=== PATIENT | female | born 1985 | race Caucasian/White ===

== ENCOUNTER 2019-03-07 20:33 | Inpatient (IN) | payer OTHER ==
[~2019-03-07] VITALS: Ht 172.7 cm; Wt 93.0 kg
--- NOTE | 2019-03-07 20:45 | NUR ---
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
[2019-03-07] MEDS ORDERED: IV NS 0.9% 1,000 ML BAG IV ONE ×2 (21:00→22:30)
--- NOTE | 2019-03-07 21:15 | NUR ---
IV STARTED, LABS DRAWN
[2019-03-07] MEDS ORDERED: MORPHINE SULFATE INJ 2 MG/ML DISP.SYRIN IV ONE (21:30)
[2019-03-07] MEDS ORDERED: ONDANSETRON HCL/PF - ER 4 MG/2 ML VIAL IV ONE (21:30)
[2019-03-07] MEDS ORDERED: ONDANSETRON HCL/PF 4 MG/2 ML VIAL ONE (21:32)
[2019-03-07 21:41] LABS: BASOPHILS % (AUTO) 0.1 % (0.0-2.0); EOSINOPHILS % (AUTO) 0.3 % (0.0-6.0); HEMATOCRIT 36 % (33-45); HEMOGLOBIN 11.9 g/dL (11.5-14.8); LYMPHOCYTES # (AUTO) 0.4 /CMM (0.8-4.8); LYMPHOCYTES % (AUTO) 3.2 % (20.0-44.0); MEAN CORPUSCULAR HGB CONC 33 g/dl (31.0-36.0); MEAN CORPUSCULAR VOLUME 89 fL (82-100); MONOCYTES # (AUTO) 0.5 /CMM (0.1-1.30); MONOCYTES % (AUTO) 3.8 % (2.0-12.0); NEUTROPHILS # (AUTO) 11.4 /CMM (1.8-8.9); NEUTROPHILS % (AUTO) 92.6 % (43.0-81.0); PLATELET COUNT (AUTO) 293 /CMM (150-450); RED BLOOD CELL COUNT(AUTO) 4.03 MIL/uL (4.0-5.2); WHITE BLOOD COUNT (AUTO) 12.3 K/uL (4.3-11.0)
[2019-03-07 21:43] LABS: APPEARANCE,URINE SL CLOUDY (CLEAR); BILIRUBIN,URINE 1+ (NEGATIVE); BLOOD, URINE TRACE-INTA Ery/uL (NEGATIVE); COLOR,URINE ORANGE (YELLOW); KETONES,URINE 1+ (NEGATIVE); LEUKOCYTE ESTERASE ,URINE TRACE (NEGATIVE); NITRITE, URINE POSITIVE (NEGATIVE); PH,URINE 6.5 (5.0-8.0); PROTEIN,URINE 3+ mg/dl (NEGATIVE); UGLUCOSE TRACE mg/dL (NEGATIVE)
[2019-03-07 21:52] LABS: CALCIUM, SERUM 8.9 mg/dL (8.5-10.1); CARBON DIOXIDE 23 mmol/L (21-32); CHLORIDE 101 mmol/L (98-107); CREATININE 1.1 mg/dL (0.6-1.3); GLUCOSE 133 mg/dL (74-106); POTASSIUM 4.4 mmol/L (3.5-5.1); SODIUM SERUM 136 mmol/L (136-145); UREA NITROGEN, BLOOD 13 mg/dL (7-18)
--- NOTE | 2019-03-07 21:55 | NUR ---
TECH AT BEDSIDE FOR KIDNEY ULTRASOUND
[2019-03-07 21:57] LABS: ALANINE AMINOTRANSFERASE 23 U/L (12-78); ALBUMIN 3.6 g/dL (3.4-5.0); ALKALINE PHOSPHATASE 53 U/L (46-116); ASPARTATE AMINOTRANSFERASE 27 U/L (15-37); BILIRUBIN,DIRECT 0.1 mg/dL (0.0-0.2); BILIRUBIN,TOTAL 0.5 mg/dL (0.2-1.0); TOTAL PROTEIN, SERUM 7.4 g/dL (6.4-8.2)
[2019-03-07] MEDS ORDERED: MORPHINE SULFATE INJ 2 MG/ML DISP.SYRIN ONE (22:01)
--- NOTE | 2019-03-07 22:15 | NUR ---
CALLED [facility] TO HAVE ORTHOPEDIC SPECIALIST DR ASH
[2019-03-07 22:31] LABS: BACTERIA,URINE Moderate /HPF (None Seen); SQUAMOUS EPITHELIAL CELL,UR Moderate /HPF (None Seen)
--- NOTE | 2019-03-07 22:49 | NUR ---
CALLED HOUSE [facility] FOR TELE BED
--- NOTE | 2019-03-07 22:51 | NUR ---
TELE BED 314-2
--- NOTE | 2019-03-07 22:57 | NUR ---
CALLED REPORT TO DOREEN SANCHEZ
--- NOTE | 2019-03-07 23:12 | NUR ---
TRANSFERING PT TO ROOM 314 PER ACLS PROTOCOL
--- NOTE | 2019-03-07 23:15 | NUR ---
ADMISSION NOTES: RECEIVED REPORT FROM DOREEN SANCHEZ CHARGE. PT WAS BROUGHT TO THE UNIT FROM ER, VIA GURNEY. PLACED IN BED, MADE COMFORTABLE. PT IS A/O X4, ON RA RESPIRATIONS EVEN AND UNLABORED. ORIENTED TO UNIT POLICY AND HOURLY ROUNDING, USE OF CALL LIGHT. SKIN ASSESSMENT PERFORMED , NO SKIN ISSUES NOTED. PT STILL C/O FEELING ACHY, SICK IN THE STOMACH, AND HEAD ACHE. PT HAS ONGOING BOLUS OF NS, ABOUT 300ML, INFUSING AT RIGHT HAND IV ACCESS G 20. MET WITH PT'S MOTHER AT BED SIDE. PLACED ON TELE MONITORING, SINUS RHYTHM HR 96. SAFETY PRECAUTIONS FOR FALL INITIATED, CALL LIGHT IN REACH, WILL CONTINUE MONITORING PT.
[2019-03-07 23:20] VITALS: BP 114/76
--- NOTE | 2019-03-08 00:05 | NUR ---
RN NOTES: NOTIFIED MD ESTIMATOR LUMBER OF PT'S ARRIVAL TO THE UNIT, NEEDS ADMITTING ORDERS, AND PT STILL C/O "FEELING ACHY, SICK IN THE STOMACH, BACK PAIN 810". AWAITING CALL BACK
[2019-03-08] MEDS ORDERED: ALPR0.5T PO (00:32)
[2019-03-08] MEDS ORDERED: PYRIDIUM PO (00:32)
[2019-03-08] MEDS ORDERED: SULF1TAB48 PO (00:32)
[2019-03-08 00:38] VITALS: BP 118/68
[2019-03-08] MEDS ORDERED: ONDANSETRON HCL/PF 4 MG/2 ML VIAL IVP PRN (01:00)
[2019-03-08] MEDS ORDERED: HYDROCODONE/APAP 5/325MG 1 EACH TABLET PO PRN (01:00)
[2019-03-08] MEDS ORDERED: MORPHINE SULFATE INJ 2 MG/ML DISP.SYRIN IV PRN (01:00)
[2019-03-08] MEDS: IV NS 0.9% 1,000 ML IV SCH ×3 (01:00→22:12)
[2019-03-08] MEDS ORDERED: Z GUARD REMEDY 2 OZ OINT TP PRN (01:00)
[2019-03-08] MEDS ORDERED: MAGNESIUM HYDROXIDE 30 ML UDC PO PRN (01:00)
[2019-03-08] MEDS ORDERED: CEFTRIAXONE 1 G VIAL ONE (01:00)
[2019-03-08] MEDS ORDERED: ALPRAZOLAM 0.5 MG TABLET PO PRN (01:00)
[2019-03-08] MEDS ORDERED: ZOLPIDEM TARTRATE 5 MG TABLET PO PRN (01:00)
[2019-03-08] MEDS ORDERED: MAG HYDROX/AL HYDROX/SIMETH 30 ML UDC PO PRN (01:00)
[2019-03-08] MEDS: CEFTRIAXONE 1 G in IV D5W 50 ML IV SCH (01:01)
--- NOTE | 2019-03-08 01:07 | NUR ---
prn zofran: pt c/o being nauseated, prn zofran 4 mg ivp administered to pt at this time. will continue to monitor and reassess pt
--- NOTE | 2019-03-08 01:20 | NUR ---
prn morphine: pt c/o 02/13 generalized pain, pain in torso, lower back, shoulder, bladder area, requesting for pain medication. prn morphine 0.5 mg ivp administered to pt at this time. will continue to monitor and reassess pt.
[2019-03-08 03:54] LABS: BASOPHILS % (AUTO) 0.1 % (0.0-2.0); EOSINOPHILS % (AUTO) 0.2 % (0.0-6.0); HEMATOCRIT 32 % (33-45); HEMOGLOBIN 10.7 g/dL (11.5-14.8); LYMPHOCYTES # (AUTO) 0.6 /CMM (0.8-4.8); LYMPHOCYTES % (AUTO) 8.1 % (20.0-44.0); MEAN CORPUSCULAR HGB CONC 33 g/dl (31.0-36.0); MEAN CORPUSCULAR VOLUME 89 fL (82-100); MONOCYTES # (AUTO) 0.3 /CMM (0.1-1.30); NEUTROPHILS # (AUTO) 6.2 /CMM (1.8-8.9); NEUTROPHILS % (AUTO) 87.6 % (43.0-81.0); PLATELET COUNT (AUTO) 247 /CMM (150-450); RED BLOOD CELL COUNT(AUTO) 3.62 MIL/uL (4.0-5.2)
[2019-03-08 04:00] VITALS: BP 108/64
[2019-03-08 04:03] LABS: CALCIUM, SERUM 8.2 mg/dL (8.5-10.1); CREATININE 0.9 mg/dL (0.6-1.3); MAGNESIUM 1.4 mg/dL (1.8-2.4); PHOSPHORUS 2.8 mg/dL (2.5-4.9); POTASSIUM 3.8 mmol/L (3.5-5.1)
[2019-03-08] MEDS: ACETAMINOPHEN 325 MG TABLET PO PRN ×3 (04:19→20:08)
--- NOTE | 2019-03-08 04:20 | NUR ---
prn tylenol: pt c/o head ache requesting for tylenol. prn tylenol 650 mg tab po administered to pt at this time. will continue to monitor and reassess
--- NOTE | 2019-03-08 04:40 | NUR ---
RN NOTES: CONTACTED EPIC MD PROGRAM SUPERVISOR REGARDING PT'S REQUEST FOR IV TORADOL FOR PAIN. AWAITING CALL BACK.
--- NOTE | 2019-03-08 05:15 | NUR ---
RN NOTES: RECEIVED CALL FROM MELTER LOADER MD. T/O RECEIVED FOR TORADOL 30 MG IV Q6HRS PRN FOR PAIN/INFLAMMATION. ALSO RELAYED TO MD LATEST LAB RESULT AND LACTIC ACID RESULT, INCLUDING VITAL SIGN TREND. RECEIVED T/O FOR MG REPLACEMENT. MAGNESIUM 3GM IVPB. READ BACK COMPLETED, VERIFIED AND CARRIED OUT.
[2019-03-08] MEDS ORDERED: Magnesium 1GM/D5W 100ML PREMIX PIGGYBACK IV ONE (05:30)
[2019-03-08] MEDS: Magnesium 1GM/D5W 100ML PREMIX 100 ML IV SCH ×3 (05:36→08:57)
[2019-03-08] MEDS: KETOROLAC TROMETHAMINE INJ 30 MG/ML VIAL IV PRN (05:36)
--- NOTE | 2019-03-08 05:37 | NUR ---
prn toradol: pt c/o generalized pain/torso pain, lower back pain, shoulder pain, bladder area pain, requesting for toradol. prn toradol 30mg ivp administered at this time. also offered and provided with ice pack as pt complaining of feeling hot, was given tylenol an hour ago for head ache, latest temp 99.5.
--- NOTE | 2019-03-08 06:39 | NUR ---
rn closing notes: pt remains afebrile, on ra, respirations even and unlabored. still of feeling dizzy and sore on her back, bladder and leg area. last pain meds administered at 0537. iv access remains patent and flushing well, with ongoing magnesium replacement at 100ml/hr. remains on sinus rhythm hr 95. vs remains stable, needs attended. safety precautions for fall remains engaged, margie light in reach, will endorse to day rn for continuity of care.
--- NOTE | 2019-03-08 07:45 | NUR ---
RN OPENING NOTES PT AWAKE AND RESTING IN BED. PT STATES THAT SHE "FEELS MUCH BETTER, BUT STILL FEELS A LITTLE CLOUDY". PT HAS RIGHT HAND #20 IV RUNNING 1MG MAG. PT TELE MONITORED NSR. SAFETY PRECAUTIONS IN PLACE, BED IN LOWEST LOCKED POSITION, X2 SIDE RAILS UP AND CALL LIGHT WITHIN REACH. WILL CONTINUE TO MONITOR.
[2019-03-08 08:00] VITALS: BP_SYST 101; BP_SYST 103; BP_SYST 123; BP_DIAS 60; BP_DIAS 69; BP_DIAS 70; BP_DIAS 74
--- NOTE | 2019-03-08 13:30 | NUR ---
RN NOTES PT COMPLAINING OF HEADACHE. PT GIVEN PRN 650MG TYLENOL. WILL CONTINUE TO MONITOR.
[2019-03-08 16:00] VITALS: BP 110/70
--- NOTE | 2019-03-08 19:36 | NUR ---
RN NOTES KS RAULITO DAMIEN ORDER SENNA 2 HS AND COLACE BID. WILL CARRY OUT ORDERED.
--- NOTE | 2019-03-08 19:43 | NUR ---
RN CLOSING NOTES PT AWAKE AND RESTING IN BED. FAMILY AT BEDSIDE. NO COMPLAINTS OF PAIN, SOB OR DISTRESS AT THIS TIME. PT HAS RIGHT HAND #20 INTACT AND RUNNING NS @125 ML/HR. SAFETY PRECAUTION IN PLACE, BED IN LOWEST LOCKED POSITION, X2 SIDE RAILS UP AND CALL LIGHT WITHIN REACH. WILL ENDORSE TO IT SECURITY ANALYST NURSE FOR CONTINUITY OF CARE.
[2019-03-08 20:00] VITALS: BP 133/83
--- NOTE | 2019-03-08 20:01 | NUR ---
RN MS OPENING NOTES RECEIVED PT IN BED, AWAKE ALERT ORIENTED X4, BREATHING EVEN AND UNLABORED ON ROOM AIR, COMPLAINING OF A HEAD ACHE 12/14, WILL ADMINISTER TYLENOL. IV ACCESS ON THE R HAND 20 WITH NS @125ML/HR. BED IN LOWEST LOCKED POSITION, CALL LIGHT WITHIN REACH AT ALL TIMES WILL CONTINUE TO MONITOR FREQUENTLY/
[2019-03-08] MEDS ORDERED: SENNOSIDES/DOCUSATE SODIUM 1 TAB TABLET PO SCH (22:00)
[2019-03-09] MEDS: CEFTRIAXONE 1 G in IV D5W 50 ML IV SCH (01:34)
[2019-03-09] MEDS: IV NS 0.9% 1,000 ML IV SCH (01:34)
[2019-03-09] MEDS: ACETAMINOPHEN 325 MG TABLET PO PRN (03:18)
--- NOTE | 2019-03-09 06:12 | NUR ---
RN MS CLOSING NOTES PT REMAINS IN BED, SLEEPING, EASILY AROUSED TO NAME CALL, BREATHING EVEN AND UNLABORED ON ROOM AIR. IN NO APPARENT PAIN OR DISCOMFORT AT THIS TIME. IV ACCESS ON THE R HAND 20 WITH NS @125ML/HR. BED IN LOWEST LOCKED POSITION, CALL LIGHT WITHIN REACH AT ALL TIMES WILL ENDORSE TO DAY NURSE FOR KVNG
--- NOTE | 2019-03-09 08:00 | NUR ---
MS RN OPENING NOTES Received Patient awake and resting in bed. A/O x 4. VS stable with no acute distress. Breathing even and unlabored on room air with no respiratory distress. Patient stated slight discomfort on back and abdominal areas. Will continue to monitor and intervene as ordered. 20g PIV on RIGHT HAND clean, dry, intact and flushing well with NS running at 125ml/hr. Safety precautions in place. Bed locked and set to lowest position with side rails x 2 up. All needs rendered at this time. Will continue to monitor.
[2019-03-09 08:19] VITALS: BP 118/61
[2019-03-09] MEDS ORDERED: IV NS 0.9% 1,000 ML IV PRN (09:00)
[2019-03-09] MEDS: KETOROLAC TROMETHAMINE INJ 30 MG/ML VIAL IV PRN ×2 (09:04→16:18)
[2019-03-09] MEDS: DOCUSATE SODIUM 100 MG CAPSULE PO SCH ×2 (09:04→16:20)
[2019-03-09 10:36] LABS: BASOPHILS % (AUTO) 0.3 % (0.0-2.0); EOSINOPHILS % (AUTO) 2.1 % (0.0-6.0); HEMATOCRIT 31 % (33-45); HEMOGLOBIN 10.6 g/dL (11.5-14.8); LYMPHOCYTES # (AUTO) 1.1 /CMM (0.8-4.8); LYMPHOCYTES % (AUTO) 19.2 % (20.0-44.0); MEAN CORPUSCULAR HGB CONC 34 g/dl (31.0-36.0); MEAN CORPUSCULAR VOLUME 90 fL (82-100); MONOCYTES # (AUTO) 0.4 /CMM (0.1-1.30); MONOCYTES % (AUTO) 6.4 % (2.0-12.0); NEUTROPHILS # (AUTO) 4.1 /CMM (1.8-8.9); PLATELET COUNT (AUTO) 234 /CMM (150-450); RED BLOOD CELL COUNT(AUTO) 3.51 MIL/uL (4.0-5.2); WHITE BLOOD COUNT (AUTO) 5.7 K/uL (4.3-11.0)
[2019-03-09 10:48] LABS: CALCIUM, SERUM 8.4 mg/dL (8.5-10.1); CREATININE 0.9 mg/dL (0.6-1.3); POTASSIUM 3.2 mmol/L (3.5-5.1)
[2019-03-09 10:51] LABS: ALBUMIN 2.9 g/dL (3.4-5.0); BILIRUBIN,TOTAL 0.1 mg/dL (0.2-1.0); MAGNESIUM 1.9 mg/dL (1.8-2.4); PHOSPHORUS 1.8 mg/dL (2.5-4.9); TOTAL PROTEIN, SERUM 6.2 g/dL (6.4-8.2)
[2019-03-09] MEDS ORDERED: POTASSIUM CHLORIDE 20 MEQ TAB.PRT.SR PO SCH (14:00)
[2019-03-09 16:23] VITALS: BP 138/80
[2019-03-09] MEDS ORDERED: LEVO750T21 PO (17:01)
--- NOTE | 2019-03-09 18:28 | NUR ---
MS TECHNOLOGY APPLICATIONS TEACHER NOTES Patient discharged for home at this time. Patient in stable condition. VS stable with no acute distress. Breathing even and unlabored on room air with no respiratory distress. Denies pain. Removed intact PIV on RIGHT HAND. Patient tolerated well. Medication reconciliation and discharge orders reviewed and explained to Patient. Patient verbalized understanding. All belongings with Patient. Patient will follow up with PCP in 1-2 weeks and continue PO ABX for 5 days. Escorted Patient to the lobby for safety. [facility] Addendum: 03/09/19 at 1939 by VIRGINIA SHERMAN RN Skin intact.
== END 2019-03-09 18:40 | disposition home or self-care (01) | DRG 872 ==
LOC: ER 20:41 → TELE 22:53 → MED 03-08 08:34
PROVIDERS: ADMIT Internal Medicine; ATTEND Internal Medicine
DX: A41.9 Sepsis, unspecified organism (principal); N10 Acute pyelonephritis; E87.2 Acidosis; E86.0 Dehydration; E83.42 Hypomagnesemia; K82.9 Disease of gallbladder, unspecified; D64.9 Anemia, unspecified
CPT/HCPCS: 36415; 76700-TC; 76770-TC; 80048-TC; 80053-TC; 80061-TC; 80076-TC; 81000-TC; 83605-TC; 83735-TC; 84100-TC; 84484-TC; 84703-TC; 85025-TC; 87040-TC; 87081-TC; 87086-TC; 93307-TC; G0378; J0696; J1885; J2270; J2405; J3475; J7030; J7060

== ENCOUNTER 2019-03-11 09:45 | Inpatient (IN) | payer OTHER ==
[~2019-03-11] VITALS: Ht 172.7 cm; Wt 91.6 kg
[~2019-03-11 09:45] MED LIST: ALPR0.5T PO; LEVO750T21 PO; PYRIDIUM PO; SULF1TAB48 PO
--- NOTE | 2019-03-11 09:45 | NUR ---
TO ER BED 1 FOR C/O "I FEEL NAUSEOUS SINCE LAST NIGHT" , ADMITTED 3DAYS AGO FOR BLADDER INFECTION PER PATIENT. TO ER BED 1, HOOKED TO MONITOR, CHANGED TO GOWN, AWAITING MD LAGOS
[2019-03-11] MEDS ORDERED: ONDANSETRON HCL/PF 4 MG/2 ML VIAL IVP ONE (10:30)
[2019-03-11] MEDS ORDERED: PANTOPRAZOLE 40 MG VIAL IV ONE (10:30)
[2019-03-11] MEDS ORDERED: IV NS 0.9% 1,000 ML BAG IV ONE (10:30)
[2019-03-11] MEDS ORDERED: PANTOPRAZOLE 40 MG VIAL ONE (10:32)
[2019-03-11] MEDS ORDERED: ONDANSETRON HCL/PF 4 MG/2 ML VIAL ONE (10:32)
[2019-03-11 10:33] LABS: BASOPHILS % (AUTO) 0.4 % (0.0-2.0); EOSINOPHILS % (AUTO) 0.4 % (0.0-6.0); HEMATOCRIT 33 % (33-45); HEMOGLOBIN 11.2 g/dL (11.5-14.8); LYMPHOCYTES # (AUTO) 1.1 /CMM (0.8-4.8); LYMPHOCYTES % (AUTO) 12.7 % (20.0-44.0); MEAN CORPUSCULAR HGB CONC 34 g/dl (31.0-36.0); MEAN CORPUSCULAR VOLUME 89 fL (82-100); MONOCYTES # (AUTO) 0.6 /CMM (0.1-1.30); MONOCYTES % (AUTO) 7.3 % (2.0-12.0); NEUTROPHILS # (AUTO) 6.6 /CMM (1.8-8.9); NEUTROPHILS % (AUTO) 79.2 % (43.0-81.0); PLATELET COUNT (AUTO) 295 /CMM (150-450); RED BLOOD CELL COUNT(AUTO) 3.69 MIL/uL (4.0-5.2); WHITE BLOOD COUNT (AUTO) 8.3 K/uL (4.3-11.0)
--- NOTE | 2019-03-11 10:36 | NUR ---
WHEELED OUT VIA RNEY FOR CT SCAN
[2019-03-11 10:40] LABS: CALCIUM, SERUM 9.3 mg/dL (8.5-10.1); CREATININE 1.1 mg/dL (0.6-1.3); POTASSIUM 3.5 mmol/L (3.5-5.1)
[2019-03-11 10:57] LABS: ALBUMIN 3.1 g/dL (3.4-5.0); BILIRUBIN,DIRECT 0.1 mg/dL (0.0-0.2); BILIRUBIN,TOTAL 0.3 mg/dL (0.2-1.0); TOTAL PROTEIN, SERUM 6.9 g/dL (6.4-8.2)
--- NOTE | 2019-03-11 11:30 | NUR ---
Rachel garcia in [facility] - 03/11/19 at 1629 by JENNY CHRONOMETER ADJUSTER AT [facility]
[2019-03-11] MEDS ORDERED: ALPR0.5T PO (12:10)
[2019-03-11] MEDS ORDERED: LEVO750T21 PO (12:10)
[2019-03-11] MEDS ORDERED: KETOROLAC TROMETHAMINE 15 MG/ML VIAL ONE (12:10)
[2019-03-11] MEDS ORDERED: ESTR1TAB15 PO (12:10)
[2019-03-11] MEDS ORDERED: TYL2T PO (12:10)
[2019-03-11] MEDS ORDERED: LORA-259 PO (12:10)
--- NOTE | 2019-03-11 12:18 | NUR ---
CALLED FOR MED-SURGE BED, TURNED IN MOVE SHEET
--- NOTE | 2019-03-11 12:24 | NUR ---
CALLED DR MEJIA FOR CONSULT, DR GREER SPOKE WITH WITH DR MEJIA
[2019-03-11] MEDS ORDERED: PIPERACILLIN /TAZOBACTAM 3.375 G in IV D5W 50 ML IV ONE (12:30)
[2019-03-11] MEDS ORDERED: KETOROLAC TROMETHAMINE INJ 30 MG/ML VIAL IV ONE (12:30)
--- NOTE | 2019-03-11 12:31 | NUR ---
PAGED DR QUEZADA
--- NOTE | 2019-03-11 12:34 | NUR ---
BED 108
[2019-03-11] MEDS ORDERED: PIPERACILLIN /TAZOBACTAM 3.375 G VIAL IV ONE (12:39)
--- NOTE | 2019-03-11 12:57 | NUR ---
REPORT GIVEN TO CHIO OF MS UNIT
--- NOTE | 2019-03-11 14:02 | NUR ---
MARIBEL FROM NUCLEAR DEPT AT BEDSIDE. NO MORPHINE AND NPO FOR PATIENT. PATIENT AWARE.
[2019-03-11] MEDS ORDERED: ONDANSETRON HCL/PF 4 MG/2 ML VIAL IVP PRN (14:30)
[2019-03-11] MEDS ORDERED: HYDROCODONE/APAP 10/325MG 1 EA TABLET PO PRN (14:30)
[2019-03-11] MEDS ORDERED: MAGNESIUM HYDROXIDE 30 ML UDC PO PRN (14:30)
[2019-03-11] MEDS ORDERED: Z GUARD REMEDY 2 OZ OINT TP PRN (14:30)
[2019-03-11] MEDS ORDERED: ZOLPIDEM TARTRATE 5 MG TABLET PO PRN (14:30)
[2019-03-11] MEDS ORDERED: MORPHINE SULFATE INJ 4 MG/ML DISP.SYRIN IM PRN (14:30)
[2019-03-11] MEDS ORDERED: HYDROCODONE/APAP 5/325MG 1 EACH TABLET PO PRN (14:30)
[2019-03-11] MEDS ORDERED: MAG HYDROX/AL HYDROX/SIMETH 30 ML UDC PO PRN (14:30)
[2019-03-11] MEDS ORDERED: DIATR MEGLU/DIATRIZOATE SODIUM 120 ML BOTTLE (GASTROGRAPHIN) ONE (14:37)
[2019-03-11] MEDS ORDERED: BARIUM SULFATE 98% 135 ML SUSP.RECON PO ONE (14:37)
--- NOTE | 2019-03-11 14:50 | NUR ---
PATIENT SIGNED CONSENT FOR HEPATO-BILIARY HIDA
--- NOTE | 2019-03-11 14:58 | NUR ---
WHEELED OUT VIA WHEELCHAIR FOR HEPATO-BILIARY HIDA.
--- NOTE | 2019-03-11 16:17 | NUR ---
TRANSFERRED TO MS UNIT VIA WHEELCHAIR BY EMT
--- NOTE | 2019-03-11 16:19 | NUR ---
NM:HIDA SCAN WAS COMPLETED, TECH:RB
--- NOTE | 2019-03-11 16:30 | NUR ---
ms rn note received patient from er with Dx cholecystitis, alert , oriented x3 , admitted under care dr lorenzana , hospital orientation done, vs taken , ivf started as ordered, no sob noted, respiration even and unlabored , bed in lowest and locked position , call light within within reach ,plan of care discussed with patient , will cont to monitor belonging checked , no s\pain at this time
[2019-03-11 16:37] VITALS: BP 135/93
[2019-03-11 16:40] VITALS: BP 135/93
[2019-03-11] MEDS: IV D5/0.45 NACL 1,000 ML IV PRN ×2 (16:55→22:41)
--- NOTE | 2019-03-11 17:47 | NUR ---
ms rn ote dr lanza called back aware hida scan no surgery at this time, cont on clear liquid diet
--- NOTE | 2019-03-11 17:49 | NUR ---
GOVERNMENT RELATIONS ANALYST NOTE PER DR DAMIEN RAMOS TO START ON XANAX AND CONTROL PILLS
[2019-03-11] MEDS: PIPERACILLIN /TAZOBACTAM 3.375 G in IV D5W 100 ML IV SCH (18:05)
--- NOTE | 2019-03-11 19:01 | NUR ---
MS R NOTE FAMILY AT BEDSIDE , ALL NEEDS ATTENDED CONT ON IVF ORDERED AND CALL LIGHT WITHIN REACH , NOT IN DISTRESS
--- NOTE | 2019-03-11 19:25 | NUR ---
MS/RN NOTES PATIENT RECEIVED IN BED AT THIS TIME, NO S/S OF ACUTE DISTRESS NOTED, RESPIRATION EVEN AND UNLABORED, NO SOB NOTED, PATIENT ALERT AND ORIENTED X4, DENIES ANY PAIN OR DISCOMFORT AT THIS TIME. RIGHT HAND 20 GAUGE NOTED WITH NO S/S OF INFECTION, INFILTRATION, RUNNING WITH FLUIDS ORDERED, SAFETY MAINTAINED, BED AT THE LOWEST LOCKED POSITION, CALL LIGHT WITHIN REACH. FAMILY AT THE BED SIDE. HOB KEPT ELEVATED, WILL CONTINUE TO MONITOR PATIENT PER PLAN OF CARE.
[2019-03-11 20:00] VITALS: BP 135/78
--- NOTE | 2019-03-11 20:59 | NUR ---
MS/RN NOTES PATIENT SEEN AND EXAMINED BY DR QUEZADA WITH NEW ORDER,
--- NOTE | 2019-03-11 20:59 | NUR ---
MS/RN NOTES RECEIVED NEW ORDER FROM BOB ZIEGLER TO DC LIQUID DIET AND CHANGE TO REGULAR DIET. PER DOCTOR NO PLAN FOR SURGERY YET. NOTED AND CARRIED OUT
[2019-03-11] MEDS ORDERED: ESTRADIOL PO SCH (22:00)
[2019-03-11] MEDS ORDERED: [UNRECOGNIZED DRUG - OTHER] PO SCH (22:00)
[2019-03-11] MEDS: ALPRAZOLAM 0.5 MG TABLET PO SCH (22:34)
[2019-03-11] MEDS: HYDROCODONE/APAP 5/325MG 1 EACH TABLET PO PRN (22:34)
[2019-03-12] MEDS: PIPERACILLIN /TAZOBACTAM 3.375 G in IV D5W 100 ML IV SCH ×3 (01:27→18:13)
[2019-03-12] MEDS: IV D5/0.45 NACL 1,000 ML IV PRN ×3 (03:31→22:17)
[2019-03-12 04:00] VITALS: BP 109/73
[2019-03-12] MEDS: HYDROCODONE/APAP 5/325MG 1 EACH TABLET PO PRN ×2 (06:14→15:00)
--- NOTE | 2019-03-12 06:25 | NUR ---
MS/RN NOTES. CASEY FROM SURGERY CALLED AT THIS TIME AND ASKED ME IF THE PATIENT HAS BEEN NPO SINCE LAST NIGHT, BECAUSE SHE IS SCHEDULE FOR SURGERY OF CHOLECYSTECTOMY. RELAYED TO HER THAT PATIENT SEEN AND EXAMINED BY DR QUEZADA LAST NIGHT, ACCORDING TO DR QUEZADA, THERE IS NO PLAN FOR SURGERY YET, DR ASKED ME TO CHANGE THE DIET FROM LIQIUD TO REGULAR DIET. ACCORDING TO PATIENT DR QUEZADA SAID THAT SHE IS STILL TRYING TO TALK TO THE SURGEON FOR SURGERY BUT NO PLAN YET. ALSO RELAYED TO CASEY THAT PATIENT ONLY HAD SOME CRACKERS AROUND 2100. SHE IS BEEN NPO SINCE AFTER MIF NIGHT EXECPT PAIN MEDICATIONS.
--- NOTE | 2019-03-12 06:41 | NUR ---
DR TUCKER MADE AWARE OF THE SITUATION WITH NEW ORDER TO KEEP PATIENT NPO UNTILL FURTHER ORDER.
--- NOTE | 2019-03-12 07:15 | NUR ---
MS RN OPENING NOTE RECEIVED REPORT FROM [facility] SHIFT NURSE. PT AWAKE, ALERT AND ORIENTED X 4, ON ROOM AIR, SATURATING WELL, NO SIGNS OF RESPIRATORY DISTRESS NOTED. D5 1/2 NS INFUSING INTO RIGHT HAND AT 200ML/HR. NO SIGNS OF INFILTRATION NOTED. BED IN LOW POSITION, LOCKED, CALL LIGHT WITHIN REACH.
--- NOTE | 2019-03-12 07:21 | NUR ---
PATIENT ON STRICT NPO STATUS, IN NO ACUTE DISTRESS AT THIS TIME, BREATHING EVEN AND UNLABORED, NO C/O PAIN AT THIS TIME. ENDORSE TO AM SHIFT NURSE FOR KVNG. ENDORSED HER TO FOLLOW UP WITH DR QUEZADA REGARDING THE SURGURY PLAN.
[2019-03-12 07:43] LABS: CALCIUM, SERUM 8.2 mg/dL (8.5-10.1); CREATININE 1.3 mg/dL (0.6-1.3)
[2019-03-12 07:49] LABS: ALBUMIN 2.7 g/dL (3.4-5.0); BASOPHILS % (AUTO) 0.5 % (0.0-2.0); BILIRUBIN,DIRECT 0.1 mg/dL (0.0-0.2); BILIRUBIN,TOTAL 0.3 mg/dL (0.2-1.0); HEMATOCRIT 29 % (33-45); HEMOGLOBIN 9.9 g/dL (11.5-14.8); LYMPHOCYTES # (AUTO) 1.5 /CMM (0.8-4.8); LYMPHOCYTES % (AUTO) 28.1 % (20.0-44.0); MAGNESIUM 1.6 mg/dL (1.8-2.4); MEAN CORPUSCULAR HGB CONC 34 g/dl (31.0-36.0); MEAN CORPUSCULAR VOLUME 88 fL (82-100); MONOCYTES # (AUTO) 0.5 /CMM (0.1-1.30); MONOCYTES % (AUTO) 9.4 % (2.0-12.0); NEUTROPHILS # (AUTO) 3.2 /CMM (1.8-8.9); PHOSPHORUS 3.7 mg/dL (2.5-4.9); PLATELET COUNT (AUTO) 254 /CMM (150-450); RED BLOOD CELL COUNT(AUTO) 3.27 MIL/uL (4.0-5.2); WHITE BLOOD COUNT (AUTO) 5.3 K/uL (4.3-11.0)
[2019-03-12 08:00] VITALS: BP 124/85
[2019-03-12] MEDS ORDERED: [UNRECOGNIZED DRUG - OTHER] PO SCH ×2 (09:00→21:00)
[2019-03-12] MEDS ORDERED: ESTRADIOL PO SCH ×2 (09:00→21:00)
[2019-03-12] MEDS: ALPRAZOLAM 0.5 MG TABLET PO SCH (09:00)
--- NOTE | 2019-03-12 09:10 | NUR ---
SPOKE WITH DR. LECHUGA WHO SAID HE SPOKE WITH DR. MEJIA, NO PLANS FOR SURGERY TODAY. PER DR. LECHUGA'S ORDERS CANCELED NPO STATUS AND CHANGED DIET TO REGULAR DIET. PT NOTIFIED.
[2019-03-12] MEDS: POTASSIUM CHLORIDE 20 MEQ TAB.PRT.SR PO SCH ×3 (09:48→14:51)
[2019-03-12] MEDS: Magnesium 1GM/D5W 100ML PREMIX 100 ML IV SCH ×3 (09:53→12:16)
--- NOTE | 2019-03-12 10:00 | NUR ---
RECEIVED PHONE CALL FROM DR. MEJIA, PER DR. MEJIA'S ORDERS PLACED ORDER FOR CCK HIDA SCAN, CONSENT SIGNED, CALLED NUCLEAR MEDICINE.
[2019-03-12 12:00] VITALS: BP 108/70
--- NOTE | 2019-03-12 13:00 | NUR ---
PT LEFT IN STABLE CONDITION FOR HIDA SCAN.
--- NOTE | 2019-03-12 14:45 | NUR ---
[facility] NAUSEA, HEADACHE RATED A 8/10, AND RIGHT UPPER QUADRANT PAIN RATED A 7/10, DULL, AGGRAVATED BY AMBULATION.
--- NOTE | 2019-03-12 15:20 | NUR ---
PT REPORTED ITCHING ON HER LEFT LOWER LEG, REPORTS SHE GOT [place]QU[place] BITES 1 DAY AGO. PHOTOS TAKEN, PLACED INTO CHART, CALLED [facility] TO REACH DR. QUEZADA TO REQUEST HYDROCORTISONE CREAM FOR ITCHING. WAITING FOR CALL BACK.
--- NOTE | 2019-03-12 15:34 | NUR ---
NM : HIDA SCAN WAS COMPLETED, TECH:RB
[2019-03-12] MEDS: ACETAMINOPHEN 325 MG TABLET PO PRN (15:50)
--- NOTE | 2019-03-12 16:34 | NUR ---
Readmitted in two days with worsening symptoms and failed outpt treatment. She lives alone on the second floor apartment with elevator access. Her mother lives closeby and can provide assistance if needed.She is ambulatory and independent with adl's. Her pcp is Dr. Lola Pineda at [facility]. Addendum: 03/12/19 at 1635 by LOLLY GARCIA RN Amended: Links added.
--- NOTE | 2019-03-12 16:55 | NUR ---
RECEIVED CALL BACK FROM DR. QUEZADA WITH NEW ORDERS FOR BENADRYL 25MG IV PRN Q6 HOURS.
[2019-03-12] MEDS ORDERED: diphenhydrAMINE HCL 50 MG/ML VIAL IV PRN (17:00)
--- NOTE | 2019-03-12 18:31 | NUR ---
MS RN CLOSING NOTE PT AWAKE IN BED, ALERT AND ORIENTED X 4, ON ROOM AIR, SATURATING WELL, RESPIRATIONS EASY UNLABORED, NO SIGNS OF RESPIRATORY DISTRESS NOTED. PT REPORTS HER NAUSEA, HEADACHE, RUQ PAIN, AND ITCHING ON LEFT LOWER LEG ARE ALL IMPROVING AFTER ADMINISTRATION OF NORCO 5-325MG PO, BENADRYL 25MG IV, AND TYLENOL 650MG PO. PROVIDED SAFETY AND COMFORT TO PT THROUGHOUT SHIFT. BED IN LOW POSITION, LOCKED, CALL LIGHT WITHIN REACH. WILL ENDORSE TO NOC SHIFT NURSE.
--- NOTE | 2019-03-12 19:25 | NUR ---
MS/RN NOTES PATIENT RECEIVED IN BED AT THIS TIME, RESTING COMFORTABLY. NO S/S OF ACUTE DISTRESS NOTED, RESPIRATION EVEN AND UNLABORED, NO SOB NOTED, PATIENT ALERT AND ORIENTED X4, DENIES ANY PAIN OR DISCOMFORT AT THIS TIME. RIGHT HAND 20 GAUGE NOTED WITH NO S/S OF INFECTION, INFILTRATION, RUNNING WITH FLUIDS ORDERED, SAFETY MAINTAINED, BED AT THE LOWEST LOCKED POSITION, CALL LIGHT WITHIN REACH. HOB KEPT ELEVATED, WILL CONTINUE TO MONITOR PATIENT PER PLAN OF CARE.
[2019-03-12 20:00] VITALS: BP 112/76
[2019-03-13] MEDS: PIPERACILLIN /TAZOBACTAM 3.375 G in IV D5W 100 ML IV SCH ×2 (01:13→10:26)
[2019-03-13] MEDS: IV D5/0.45 NACL 1,000 ML IV PRN (03:38)
[2019-03-13 04:00] VITALS: BP 125/84
--- NOTE | 2019-03-13 04:08 | NUR ---
PATIENT COMPLAIN OF ACID REFLEX, CALLED ADELA TUCKER AT THIS TIME WITH NEW ORDER FOR TUMS ORDERED. NOTED AND CARRIED OUT.
[2019-03-13] MEDS: CALCIUM CARBONATE 500 MG TAB.CHEW PO PRN ×2 (04:19→10:34)
--- NOTE | 2019-03-13 06:43 | NUR ---
MS/RN EXIT NOTES PATIENT REMAINED IN BED, RESTING COMFORTABLY AT THIS TIME, NO S/S OF ACUTE DISTRESS NOTED, RESPIRATION EVEN AND UNLABORED, NO C/O ANY PAIN OR DISCOMFORT AT THIS TIME. RIGHT HAND 20 GAUGE NOTED WITH NO S/S OF INFECTION/INFILTRATION, RUNNING WITH FLUIDS ORDERED. HOB ELEVATED. KEPT CLEAN AND DRY. SAFETY MAINTAINED, ALL DUE MEDICATION GIVEN ORDERED, PATIENT TOLERATED WELL. BED AT THE LOWEST LOCKED POSITION, CALL LIGHT WITHIN REACH, ENDORSE TO AM SHIFT NURSE FOR KVNG.
[2019-03-13 06:59] LABS: ALBUMIN 2.6 g/dL (3.4-5.0); BILIRUBIN,DIRECT 0.1 mg/dL (0.0-0.2); BILIRUBIN,TOTAL 0.3 mg/dL (0.2-1.0); CALCIUM, SERUM 8.3 mg/dL (8.5-10.1); CREATININE 1.3 mg/dL (0.6-1.3); MAGNESIUM 2.1 mg/dL (1.8-2.4); PHOSPHORUS 2.7 mg/dL (2.5-4.9); POTASSIUM 3.7 mmol/L (3.5-5.1); TOTAL PROTEIN, SERUM 5.7 g/dL (6.4-8.2)
--- NOTE | 2019-03-13 07:42 | NUR ---
RN OPENING NOTES RECEIVED PATIENT RESTING COMFORTABLY IN BED, DENIES ANY PAIN OR DISCOMFORT AT THIS TIME. SHE IS AOX4, VERBAL, AND AMBULATORY. SHE IS ON RA, SHOWS NO S/SX OF RESP DISTRESS OR DISCOMFORT. IV SITE IS NOT PATENT, NO BLOOD RETURN AND PATIENT WAS EXPERIENCING PAIN DURING FLUSHING. IV SITE WILL BE REMOVED AND CHANGED. SHE IS ON A REGULAR DIET. SAFETY MEASURES HAVE BEEN IMPLEMENTED, CALL LIGHT IS WITHIN REACH, BED IS IN LOWEST AND LOCKED POSITION, SIDE RAILS UP X2, WILL CONTINUE TO MONITOR FOR ANY CHANGES.
[2019-03-13 08:00] VITALS: BP 138/79
[2019-03-13] MEDS: ALPRAZOLAM 0.5 MG TABLET PO SCH (09:00)
[2019-03-13] MEDS: ACETAMINOPHEN 325 MG TABLET PO PRN (10:26)
--- NOTE | 2019-03-13 16:00 | NUR ---
PATIENT HAS BEEN DISCHARGED FROM THE HOSPITAL. IV SITES REMOVED, BELONGINGS LIST CHECKED OFF. EXIT CARE PROVIDED, MRSA, INFLUENZA, DIAGNOSIS, SMOKING, PNEUMOCOCCAL, AND VENOUS THROMBOEMBOLISM. HOME MEDS RETURNED TO PATIENT. SHE LEFT VIA WHEEL CHAIR IN STABLE CONDITION. MOTHER DROVE HER HOME
== END 2019-03-13 16:02 | disposition home or self-care (01) | DRG 690 ==
LOC: ER 09:48 → MEDSG1 14:09
PROVIDERS: ADMIT Internal Medicine; ATTEND Internal Medicine
DX: N12 Tubulo-interstitial nephritis, not specified as acute or chronic (principal); E87.2 Acidosis; K21.9 Gastro-esophageal reflux disease without esophagitis; Z98.890 Other specified postprocedural states; Z79.899 Other long term (current) drug therapy; Z87.440 Personal history of urinary (tract) infections; Z84.89 Family history of other specified conditions; D25.9 Leiomyoma of uterus, unspecified; E66.9 Obesity, unspecified; Z68.30 Body mass index [BMI] 30.0-30.9, adult; E86.0 Dehydration; E83.42 Hypomagnesemia; E87.6 Hypokalemia; K76.0 Fatty (change of) liver, not elsewhere classified; K82.8 Other specified diseases of gallbladder
CPT/HCPCS: 36415; 71045-TC; 78226; 80048-TC; 80061-TC; 80076-TC; 83605-TC; 83690-TC; 83735-TC; 84100-TC; 84702-TC; 85025-TC; A9537; C9113; G0378; J1200; J1885; J2405; J2543; J3475; J3490; J7030; J7060; Q9963